=== PATIENT | male | born 1940 | race Caucasian/White ===

== ENCOUNTER 2023-05-29 09:48 | Inpatient (IN) | payer OTHER ==
[~2023-05-29] VITALS: Ht 180.3 cm; Wt 116.0 kg
[2023-05-29] VITALS (14 sets, daily range): BP systolic 94–119; BP diastolic 31–74; PULSE 74–108; RESP 18–24; TEMP 36.7; O2SAT 75–100
[2023-05-29] MEDS ORDERED: SODIUM CHLORIDE 0.9% 1,000 ML IVB ONE (10:30)
[2023-05-29 11:25] LABS: Basophils # (auto) 0 10 ^3/uL (0-0.2); Basophils % (auto) 0.1 % (0.0-2.0); Eosinophils # (auto) 0 10 ^3/uL (0-0.8); Eosinophils % (auto) 0.2 % (0.0-7.0); Hematocrit 38.8 % (41.0-53.0); Hemoglobin 13.1 g/dL (13.5-17.5); Lymphocytes # (auto) 0.7 10 ^3/uL (0.4-5.4); Lymphocytes % (auto) 4.4 % (10.0-50.0); Mean Corpuscular Hemoglobin 32.8 pg (28.0-32.0); Mean Corpuscular Hgb Conc. 33.6 g/dL (32.0-36.0); Mean Corpuscular Volume 97.4 fL (80.0-100.0); Monocytes # (auto) 1.6 10 ^3/uL (0-1.3); Monocytes % (auto) 9.7 % (0.0-12.0); Neutrophils % (auto) 85.6 % (37.0-80.0); Red Blood Cells 3.99 10^6/uL (4.5-5.90); Red Cell Distribution Width 14.6 % (11.8-14.3); White Blood Cell 16.4 10^3/uL (4.4-10.8)
[2023-05-29 11:55] LABS: Alanine Aminotransferase 20 U/L (7-40); Albumin 3.5 g/dL (3.2-4.8); Alkaline Phosphatase 84 U/L (46-116); Anion Gap 12 (5-15); Aspartate Aminotransferase 26 U/L (13-40); BUN/Creatinine Ratio 30.8 (10.0-20.0); Calcium 9.1 mg/dL (8.5-10.1); Carbon Dioxide 24 mmol/L (20-30); Chloride 104 mmol/L (98-107); Glucose 114 mg/dL (74-106); Potassium 3.7 mmol/L (3.5-5.1); Sodium 140 mmol/L (136-145)
[2023-05-29 11:56] LABS: Bilirubin, Total 2.3 mg/dL (0.2-1.0); Total Protein 6.6 g/dL (5.7-8.2)
[2023-05-29 12:22] LABS: Blood Urea Nitrogen 90 mg/dL (9-23)
[2023-05-29] MEDS ORDERED: NOREPINEPHRINE 8 MG/250ML KIT 250 ML IV ONE (12:25)
[2023-05-29 12:35] LABS: Urine Bacteria NONE SEEN /hpf (None Seen); Urine Blood Negative /uL (Negative); Urine Clarity Clear (Clear); Urine Color Yellow (Yellow); Urine Hyaline Cast MANY /lpf (0 - 2); Urine Protein, UAD TRACE (Negative); Urine Specific Gravity 1.016 (1.001-1.035); Urine WBC 3 /hpf (0 - 3)
[2023-05-29 12:43] LABS: INR 1.31 (0.9-1.15); Partial Thromboplastin Time 25.5 SEC (24.5-34.5); Prothrombin Time 13.5 sec (9.3-11.8)
[2023-05-29] MEDS: NOREPINEPHRINE 8 MG/250ML KIT 250 ML IV SCH (13:39)
[2023-05-29] MEDS ORDERED: LIDOCAINE 1% (LOCAL ANESTH.) PF 5ml SDV ID ONE (14:00)
[2023-05-29] MEDS ORDERED: MORPHINE SULFATE INJ 2 MG/ml SYRG IV PRN (15:45)
[2023-05-29] MEDS ORDERED: SODIUM CHLORIDE 0.9% 1,000 ML IV ONE (15:45)
[2023-05-29] MEDS ORDERED: PIPERACILLIN-TAZOB 2.25GM 50 ML IV SCH (15:45)
[2023-05-29] MEDS ORDERED: ONDANSETRON HCL 4 MG/2 ML VIAL IV PRN (15:45)
[2023-05-29] MEDS ORDERED: NITROGLYCERIN 0.4 MG SL TAB SL PRN (15:45)
[2023-05-29] MEDS: PIPERACILLIN-TAZOB 2.25GM 50 ML IV SCH ×2 (16:01→22:07)
[2023-05-29 16:41] LABS: Anion Gap 13 (5-15); Carbon Dioxide 22 mmol/L (20-30); Chloride 104 mmol/L (98-107); Potassium 3.3 mmol/L (3.5-5.1); Sodium 139 mmol/L (136-145)
[2023-05-29 16:43] LABS: Calcium 8.9 mg/dL (8.7-10.4)
[2023-05-29 16:47] LABS: Glucose 199 mg/dL (74-106)
[2023-05-29 16:48] LABS: BUN/Creatinine Ratio 34.5 (10.0-20.0)
[2023-05-29 17:01] LABS: Blood Urea Nitrogen 80 mg/dL (9-23)
[2023-05-29] MEDS ORDERED: SODIUM CHLORIDE 0.9% 500 ML IV ONE (17:15)
[2023-05-29 18:01] LABS: COVID19 ANTIGEN SOFIA FIA NEGATIVE (NEGATIVE)
[2023-05-29] MEDS: SODIUM CHLORIDE 0.9% 1,000 ML IV SCH (18:01)
[2023-05-29] MEDS ORDERED: POTASSIUM EFFERVESENT TAB 25 MEQ PO ONE (18:15)
[2023-05-29 19:10] LABS: Protein, Urine 38.1 mg/dL (0.0-11.9)
[2023-05-29 19:12] LABS: Creatinine, Urine 67.23 mg/dL (30.0-125.0); Urine Protein/Creatinine Ratio 0.57
[2023-05-29] MEDS: SODIUM CHLOR 0.9% PF (SALINE LOCK) 10ML VIAL/SYR IV SCH (22:05)
[2023-05-30] VITALS (45 sets, daily range): BP systolic 83–119; BP diastolic 34–60; PULSE 70–93; RESP 14–29; TEMP 98–98.2; O2SAT 85–100
[2023-05-30] MEDS ORDERED: SODIUM CHLORIDE 0.9% 500 ML IV ONE (01:00)
[2023-05-30] MEDS: SODIUM CHLORIDE 0.9% 1,000 ML IV SCH (03:30)
[2023-05-30] MEDS: PIPERACILLIN-TAZOB 2.25GM 50 ML IV SCH ×2 (04:20→10:09)
[2023-05-30 05:11] LABS: Basophils # (auto) 0 10 ^3/uL (0-0.2); Basophils % (auto) 0.2 % (0.0-2.0); Eosinophils # (auto) 0.1 10 ^3/uL (0-0.8); Eosinophils % (auto) 0.8 % (0.0-7.0); Hematocrit 34.7 % (41.0-53.0); Hemoglobin 11.6 g/dL (13.5-17.5); Lymphocytes % (auto) 7.8 % (10.0-50.0); Mean Corpuscular Hemoglobin 32.3 pg (28.0-32.0); Mean Corpuscular Hgb Conc. 33.4 g/dL (32.0-36.0); Mean Corpuscular Volume 96.9 fL (80.0-100.0); Monocytes # (auto) 1.2 10 ^3/uL (0-1.3); Monocytes % (auto) 9.4 % (0.0-12.0); Neutrophils # (auto) 10.8 10 ^3/uL (1.6-8.6); Neutrophils % (auto) 81.8 % (37.0-80.0); Red Blood Cells 3.58 10^6/uL (4.5-5.90); White Blood Cell 13.2 10^3/uL (4.4-10.8)
[2023-05-30 05:22] LABS: Alanine Aminotransferase 20 U/L (7-40); Alkaline Phosphatase 79 U/L (46-116); Anion Gap 9 (5-15); Aspartate Aminotransferase 19 U/L (13-40); BUN/Creatinine Ratio 43.1 (10.0-20.0); Bilirubin, Total 1.2 mg/dL (0.2-1.0); Blood Urea Nitrogen 78 mg/dL (9-23); Calcium 8.6 mg/dL (8.7-10.4); Carbon Dioxide 26 mmol/L (20-30); Chloride 110 mmol/L (98-107); Glucose 105 mg/dL (74-106); Potassium 3.3 mmol/L (3.5-5.1); Sodium 145 mmol/L (136-145); Total Protein 5.5 g/dL (5.7-8.2)
[2023-05-30] MEDS ORDERED: POTASSIUM EFFERVESENT TAB 25 MEQ GT ONE (10:00)
[2023-05-30] MEDS: SODIUM CHLOR 0.9% PF (SALINE LOCK) 10ML VIAL/SYR IV SCH ×2 (10:10→21:55)
[2023-05-30] MEDS: SOD CHL 0.45% 1,000 ML IV SCH ×2 (10:10→20:09)
[2023-05-30] MEDS: HYDROcodone-ACET 10/325MG TAB PO PRN (11:52)
[2023-05-30] MEDS: NOREPINEPHRINE 8 MG/250ML KIT 250 ML IV SCH (12:30)
[2023-05-30] MEDS: PIPERACILLIN-TAZOB 3.375GM 100 ML IV SCH ×2 (15:54→21:55)
[2023-05-30] MEDS: NYSTATIN TOPICAL POWDER 15GM TOP SCH (21:55)
[2023-05-31] VITALS (9 sets, daily range): BP systolic 92–116; BP diastolic 47–69; PULSE 82–93; RESP 12–20; TEMP 97.8–98.3; O2SAT 92–95
[2023-05-31] MEDS: SOD CHL 0.45% 1,000 ML IV SCH ×3 (02:20→14:15)
[2023-05-31 05:55] LABS: Basophils # (auto) 0 10 ^3/uL (0-0.2); Basophils % (auto) 0.4 % (0.0-2.0); Eosinophils # (auto) 0.2 10 ^3/uL (0-0.8); Eosinophils % (auto) 1.9 % (0.0-7.0); Hemoglobin 12.4 g/dL (13.5-17.5); Lymphocytes # (auto) 1.1 10 ^3/uL (0.4-5.4); Mean Corpuscular Hemoglobin 32.4 pg (28.0-32.0); Mean Corpuscular Hgb Conc. 32.6 g/dL (32.0-36.0); Mean Corpuscular Volume 99.4 fL (80.0-100.0); Monocytes % (auto) 9.1 % (0.0-12.0); Neutrophils # (auto) 8.9 10 ^3/uL (1.6-8.6); Neutrophils % (auto) 78.6 % (37.0-80.0); Nucleated Red Blood Cells % 0.1 %; Red Blood Cells 3.83 10^6/uL (4.5-5.90); Red Cell Distribution Width 15.1 % (11.8-14.3); White Blood Cell 11.4 10^3/uL (4.4-10.8)
[2023-05-31] MEDS: PIPERACILLIN-TAZOB 3.375GM 100 ML IV SCH ×3 (05:55→22:03)
[2023-05-31 06:37] LABS: Alanine Aminotransferase 20 U/L (7-40); Albumin 3.2 g/dL (3.2-4.8); Alkaline Phosphatase 85 U/L (46-116); Anion Gap 7 (5-15); Aspartate Aminotransferase 22 U/L (13-40); BUN/Creatinine Ratio 31.5 (10.0-20.0); Carbon Dioxide 28 mmol/L (20-30); Chloride 108 mmol/L (98-107); Glucose 97 mg/dL (74-106); Potassium 3.5 mmol/L (3.5-5.1); Sodium 143 mmol/L (136-145)
[2023-05-31 06:46] LABS: Blood Urea Nitrogen 40 mg/dL (9-23)
[2023-05-31] MEDS: MAGNESIUM SULFATE 1GM/100ML 100 ML IV SCH ×2 (10:29→11:58)
[2023-05-31] MEDS: NYSTATIN TOPICAL POWDER 15GM TOP SCH ×2 (10:30→22:18)
[2023-05-31] MEDS: SODIUM CHLOR 0.9% PF (SALINE LOCK) 10ML VIAL/SYR IV SCH ×2 (10:37→22:18)
[2023-05-31] MEDS: HYDROcodone-ACET 10/325MG TAB PO PRN (17:18)
[2023-05-31] MEDS: ENOXAPARIN SOD 100 MG/1 ML SYRINGE SC SCH (22:12)
[2023-06-01] VITALS (10 sets, daily range): BP systolic 106–155; BP diastolic 64–74; PULSE 69–101; RESP 16–20; TEMP 97.5–98.2; O2SAT 92–98
[2023-06-01] MEDS: HYDROcodone-ACET 10/325MG TAB PO PRN (01:55)
[2023-06-01] MEDS: SOD CHL 0.45% 1,000 ML IV SCH ×3 (02:01→20:50)
[2023-06-01 06:48] LABS: Basophils # (auto) 0.1 10 ^3/uL (0-0.2); Basophils % (auto) 0.8 % (0.0-2.0); Eosinophils # (auto) 0.3 10 ^3/uL (0-0.8); Eosinophils % (auto) 3.5 % (0.0-7.0); Hematocrit 35.1 % (41.0-53.0); Hemoglobin 11.7 g/dL (13.5-17.5); Lymphocytes % (auto) 11.7 % (10.0-50.0); Mean Corpuscular Hemoglobin 32.3 pg (28.0-32.0); Mean Corpuscular Hgb Conc. 33.3 g/dL (32.0-36.0); Monocytes # (auto) 0.9 10 ^3/uL (0-1.3); Monocytes % (auto) 10.7 % (0.0-12.0); Neutrophils # (auto) 6.2 10 ^3/uL (1.6-8.6); Neutrophils % (auto) 73.3 % (37.0-80.0); Nucleated Red Blood Cells % 0.1 %; Red Blood Cells 3.62 10^6/uL (4.5-5.90); Red Cell Distribution Width 14.5 % (11.8-14.3); White Blood Cell 8.5 10^3/uL (4.4-10.8)
[2023-06-01] MEDS: PIPERACILLIN-TAZOB 3.375GM 100 ML IV SCH ×3 (06:49→20:54)
[2023-06-01] MEDS ORDERED: IOHEXOL 350 MG/ML 100ML IJ ONE (07:09)
[2023-06-01 07:11] LABS: Alanine Aminotransferase 20 U/L (7-40); Albumin 2.9 g/dL (3.2-4.8); Alkaline Phosphatase 89 U/L (46-116); Anion Gap 6 (5-15); Aspartate Aminotransferase 25 U/L (13-40); BUN/Creatinine Ratio 29.7 (10.0-20.0); Calcium 8.6 mg/dL (8.7-10.4); Carbon Dioxide 30 mmol/L (20-30); Chloride 107 mmol/L (98-107); Glucose 87 mg/dL (74-106); Potassium 3.3 mmol/L (3.5-5.1); Sodium 143 mmol/L (136-145); Total Protein 5.5 g/dL (5.7-8.2)
[2023-06-01 07:33] LABS: Blood Urea Nitrogen 30 mg/dL (9-23)
[2023-06-01] MEDS ORDERED: LORazepam 2MG/ML-1ML VIAL IV ONE (09:15)
[2023-06-01] MEDS ORDERED: POTASSIUM CHL 20 Meq TABLET PO ONE (09:15)
[2023-06-01] MEDS: NYSTATIN TOPICAL POWDER 15GM TOP SCH ×2 (10:00→22:00)
[2023-06-01] MEDS: ENOXAPARIN SOD 100 MG/1 ML SYRINGE SC SCH (10:00)
[2023-06-01] MEDS: SODIUM CHLOR 0.9% PF (SALINE LOCK) 10ML VIAL/SYR IV SCH ×2 (10:59→20:58)
[2023-06-02 05:00] VITALS: BP 137/73; PULSE 83; RESP 19; TEMP 98.3; O2SAT 92
[2023-06-02] MEDS: PIPERACILLIN-TAZOB 3.375GM 100 ML IV SCH ×2 (05:10→13:39)
[2023-06-02] MEDS: SOD CHL 0.45% 1,000 ML IV SCH (05:17)
[2023-06-02 06:14] LABS: Basophils # (auto) 0.1 10 ^3/uL (0-0.2); Basophils % (auto) 0.7 % (0.0-2.0); Eosinophils # (auto) 0.3 10 ^3/uL (0-0.8); Eosinophils % (auto) 3.3 % (0.0-7.0); Hematocrit 35.1 % (41.0-53.0); Hemoglobin 11.9 g/dL (13.5-17.5); Lymphocytes # (auto) 1.4 10 ^3/uL (0.4-5.4); Lymphocytes % (auto) 17.3 % (10.0-50.0); Mean Corpuscular Hemoglobin 32.6 pg (28.0-32.0); Mean Corpuscular Hgb Conc. 33.8 g/dL (32.0-36.0); Mean Corpuscular Volume 96.3 fL (80.0-100.0); Monocytes # (auto) 0.9 10 ^3/uL (0-1.3); Monocytes % (auto) 11.1 % (0.0-12.0); Neutrophils # (auto) 5.3 10 ^3/uL (1.6-8.6); Neutrophils % (auto) 67.6 % (37.0-80.0); Red Blood Cells 3.65 10^6/uL (4.5-5.90); Red Cell Distribution Width 14.2 % (11.8-14.3); White Blood Cell 7.8 10^3/uL (4.4-10.8)
[2023-06-02 06:31] LABS: Alanine Aminotransferase 34 U/L (7-40); Alkaline Phosphatase 108 U/L (46-116); Anion Gap 6 (5-15); Aspartate Aminotransferase 40 U/L (13-40); BUN/Creatinine Ratio 20.5 (10.0-20.0); Blood Urea Nitrogen 18 mg/dL (9-23); Calcium 8.8 mg/dL (8.7-10.4); Carbon Dioxide 28 mmol/L (20-30); Chloride 108 mmol/L (98-107); Glucose 88 mg/dL (74-106); Potassium 3.5 mmol/L (3.5-5.1); Sodium 142 mmol/L (136-145)
[2023-06-02 06:32] LABS: Albumin 3.1 g/dL (3.2-4.8); Bilirubin, Total 1.1 mg/dL (0.2-1.0); Total Protein 5.8 g/dL (5.7-8.2)
[2023-06-02 09:00] VITALS: BP 128/65; PULSE 88; RESP 20; TEMP 98.4; O2SAT 94
[2023-06-02] MEDS: NYSTATIN TOPICAL POWDER 15GM TOP SCH (10:00)
[2023-06-02] MEDS: SODIUM CHLOR 0.9% PF (SALINE LOCK) 10ML VIAL/SYR IV SCH (10:00)
[2023-06-02 13:00] VITALS: BP 126/90; PULSE 91; RESP 19; TEMP 97.9; O2SAT 93
== END 2023-06-02 14:40 | disposition home health service (06) | DRG 683 ==
LOC: EDBD 09:48 → ER 09:48 → TELE 15:43 → TELE-EAST 21:05 → DOU IN ICU 21:08 → ICU CENTRL 21:40 → TELE-EAST 05-30 22:57
PROVIDERS: ADMIT Internal Medicine; ATTEND Internal Medicine
PROC: 02HV33Z Insertion of Infusion Device into Superior Vena Cava, Percutaneous Approach (ICD-10-PCS; principal; 2023-05-29)
PROC: B548ZZA Ultrasonography of Superior Vena Cava, Guidance (ICD-10-PCS; 2023-05-29)
DX: N17.9 Acute kidney failure, unspecified (principal); I13.0 Hypertensive heart and chronic kidney disease with heart failure and stage 1 through stage 4 chronic kidney disease, or unspecified chronic kidney disease; I50.22 Chronic systolic (congestive) heart failure; E86.0 Dehydration; N18.2 Chronic kidney disease, stage 2 (mild); E87.6 Hypokalemia; E78.5 Hyperlipidemia, unspecified; D72.829 Elevated white blood cell count, unspecified; I27.20 Pulmonary hypertension, unspecified; I95.9 Hypotension, unspecified; Z20.822 Contact with and (suspected) exposure to COVID-19; E66.9 Obesity, unspecified; R73.9 Hyperglycemia, unspecified; Z88.2 Allergy status to sulfonamides; Z86.73 Personal history of transient ischemic attack (TIA), and cerebral infarction without residual deficits; Z68.35 Body mass index [BMI] 35.0-35.9, adult
CPT/HCPCS: 36415; 36569; 70450; 71045; 76775; 80048; 80053; 81001; 82306; 82570; 83036; 83605; 83880; 83970; 84100; 84156; 84300; 85025; 85610; 85730; 87040; 87081; 87426; 93005; 93306; 93970; 97110; 97116; 97163; G0378; J2543

== ENCOUNTER 2025-08-05 17:36 | Inpatient (IN) | payer OTHER ==
[~2025-08-05] VITALS: Ht 185.4 cm; Wt 109.6 kg
--- NOTE | 2025-08-05 18:48 | DVH ---
EXAM: XY CHEST PORTABLE HISTORY: weakness TECHNIQUE: 1 view of the chest COMPARISON: XY CHEST PORTABLE on DOS: 05/29/23 FINDINGS/IMPRESSION: LUNGS: Large consolidation in the right lung base. Consider further evaluation with CT of the chest with contrast. Increased interstitial markings in the left mid to lower lung zone. MEDIASTINUM: Unremarkable. BONES: No acute osseous abnormality. Degenerative change with rotator cuff insufficiency of bilateral shoulders OTHER: None.
[2025-08-05] MEDS: CEFEPIME 1GM/50ML 50 ML IV ONE (18:49)
--- NOTE | 2025-08-05 18:55 | ED.PDOC ---
History of Present Illness HPI Comments 85 y.o male presents to the ED via EMS for a chief complaint of generalized weakness. Patient is a poor historian. was contacted via telephone who stated she attempted to assist patient up to use the restroom for 45 minutes today but was unsuccessful. states patient has been having urine incontinence with weakness and has had a cognitive deficit. At this time, patient denies any pain. Vital: Temp: 100.6 BP: 104/44 HR: 110 SPO2: 94% RA RR: 22 Past medical history: TIA, HTN, HLD Past surgical history: tonsillectomy and appendectomy MEAD: HPI: Poor Historian. Past Medical History: Past Surgical History: REVIEW OF SYSTEMS: CONSTITUTIONAL: Denies acute: fever, diaphoresis, chills, HEAD: Denies acute: headache, photophobia Eyes: Denies acute: Double vision, vision loss, eye pain, eye discharge. EARS: Denies acute: tinnitus, hearing loss, ear discharge, ear pain, THROAT: Denies acute: sore throat, swelling, difficulty swallowing , pain with swallowing, change in voice. NECK: Denies acute: neck pain, neck swelling, stiff neck. HEART: Denies acute : chest pain, palpitations, LUNGS: Denies acute: SOB, wheezing, cough, hemoptysis ABDOMEN: Denies acute: abdominal pain, Nausea, Vomiting, diarrhea, melena , hematemesis, hematochezia SKIN: Denies acute: rash, redness, lesions, itchiness. EXTREMITIES: Denies acute: calf pain, numbness, tingling, weakness, denies pain in extremity. Denies acute: Low back pain. Neuro: Denies acute: focal neurological deficit, motor or sensory focal neurological deficit, tremors, seizure like activity, cauda equina like symptoms. : Denies acute: dysuria, hematuria, flank pain, increase in urinary frequency. PSYCH: Denies acute: hallucination, suicidal ideation, homicidal ideation. PHYSICAL EXAM: General: -----mild---acute distress, awake and alert. Head: normocephalic, atraumatic. No raccoon's eyes, no curry sign. Neck: supple, trachea is midline, no swelling. Throat: Normal phonation. Eyes:, no erythema, no purulent discharge, no proptosis, no icterus. Heart: regular rate, regular rhythm, no significant murmur appreciated. Lungs: no apparent respiratory distress, Able to speak in full sentences. No wheezing, no rhonchi, no crackles. No stridors Clear to auscultation bilaterally. Abdomen: non tender to palpation, non distended, soft, no guarding, no rebound, + bowel sounds. Neuro: Awake, Alert, oriented to name, self, , Speech is normal. Skin: no petechia, no purpura, no cyanosis, non-pale, not jaundice. Lower extremities: --2/4 b/l- Pitting edema no deformity, no focal swelling, no calf TTP. Makes eye contact. moves all four extremities. Face: no apparent facial droop. ED COURSE: DISCLAIMER: This medical document was created using an electronic medical record system with voice recognition software and computerized dictation system. Although this document has been carefully reviewed, there might still be some phonetic and typographical errors. Occasional wrong-word or "sound-alike" substitutions may have occurred due to the inherent limitations of voice recognition software. These areas are purely typographical due to imperfections of the software programs and do not reflect any compromise in the patient's medical care. Please read the chart carefully and recognize, using context, where these substitutions have occurred. Chief Complaint: General Weakness Time Seen by MD: 18:45 Primary Care Provider: UNK Reviewed Notes: Allergies Allergies: Coded Allergies: Sulfa Antibiotics (Verified Allergy, Unknown, 05/29/23) Home Meds No Active Prescriptions or Reported Meds Information Source: Spouse Mode of Arrival: EMS Severity: Moderate Past Medical History PAST MEDICAL HISTORY: High Lipids, HTN, TIA Surgical History: Appendectomy, Tonsillectomy Family History Family History: Reviewed,noncontributory to illness Social History Smoker: Non-Smoker Alcohol: Denies ETOH Use Drugs: Denies Drug Use Lives In: Home Was a procedure done? Was a procedure done?: No Differential Dx Considerations may include: Dehydration, Electrolyte imbalance X-Ray, Labs, Meds, VS Vital Signs Date Time Temp Pulse Resp B/P (MAP) Pulse Ox O2 Delivery O2 Flow Rate FiO2 08/06/25 06:01 80 18 97 Nasal Cannula* 2 28 08/06/25 06:01 98.1 80 18 142/83 (102) 97 98.1 08/06/25 04:03 86 22 127/63 95 2.0 28 08/06/25 00:22 99.1 86 18 127/63 (84) 95 99.1 08/06/25 00:22 86 17 95 Nasal Cannula* 2 28 08/05/25 19:02 99.0 95 18 108/67 (81) 93 99.0 08/05/25 17:47 100.6 110 22 104/44 94 100.6 08/05/25 17:46 102 Lab Test 08/06/25 04:32 08/05/25 21:36 08/05/25 21:10 08/05/25 19:43 Range/Units Urine Color Dark-yellow Yellow Urine Clarity Clear Clear Urine pH 5.5 5.0-9.0 Urine Specific [place] 1.025 1.001-1.035 Urine Protein 1+ H Negative Urine Ketones Negative Negative Urine Blood 2+ H Negative /uL Urine Nitrite Negative Negative Urine Bilirubin 2+ Negative Urine Urobilinogen 4 H Negative mg/dL Urine Leukocyte Esterase Negative Negative /uL Urine RBC 1 0 - 3 /hpf Urine Microscopic WBC 1 0-3 /HPF Urine Squamous Epithelial Cells None seen <5 /hpf Urine Renal Epithelial Cells Few None Seen /hpf Urine Bacteria Few H None Seen /hpf Urine Mucus Few None Seen Urine Glucose Normal Normal mg/dL Troponin I High Sensitivity 21 17 </=54 ng/L Lactic Acid Level 1.7 0.4-2.0 mmol/L Test 08/05/25 18:43 Range/Units White Blood Count 13.9 H 4.4-10.8 10^3/uL Red Blood Count 4.66 4.5-5.90 10^6/uL Hemoglobin 15.2 13.5-17.5 g/dL Hematocrit 44.8 41.0-53.0 % Mean Corpuscular Volume 96.1 80.0-100.0 fL Mean Corpuscular Hemoglobin 32.5 H 28.0-32.0 pg Mean Corpuscular Hemoglobin Concent 33.8 32.0-36.0 g/dL Red Cell Distribution Width 14.1 11.8-14.3 % Platelet Count 155 140-450 10^3/uL Mean Platelet Volume 8.2 6.9-10.8 fL Neutrophils (%) (Auto) 91.6 H 37.0-80.0 % Lymphocytes (%) (Auto) 2.5 L 10.0-50.0 % Monocytes (%) (Auto) 5.8 0.0-12.0 % Eosinophils (%) (Auto) 0.0 0.0-7.0 % Basophils (%) (Auto) 0.1 0.0-2.0 % Neutrophils # (Auto) 12.7 H 1.6-8.6 10 ^3/uL Lymphocytes # (Auto) 0.3 L 0.4-5.4 10 ^3/uL Monocytes # (Auto) 0.8 0-1.3 10 ^3/uL Eosinophils # (Auto) 0 0-0.8 10 ^3/uL Basophils # (Auto) 0 0-0.2 10 ^3/uL Nucleated Red Blood Cells 0.1 % Prothrombin Time 15.6 H 9.3-11.8 sec Prothrombin Time INR 1.54 H 0.9-1.15 Activated Partial Thromboplast Time 30.7 24.5-34.5 SEC Sodium Level 143 136-145 mmol/L Potassium Level 3.5 3.5-5.1 mmol/L Chloride Level 102 98-107 mmol/L Carbon Dioxide Level 29 20-31 mmol/L Anion Gap 12 5-15 Blood Urea Nitrogen 20 9-23 mg/dL Creatinine 1.04 0.700-1.30 mg/dL Glomerular Filtration Rate Calc 71 >90 mL/min BUN/Creatinine Ratio 19.2 10.0-20.0 Serum Glucose 123 H 74-106 mg/dL Lactic Acid Level 2.3 *H 0.4-2.0 mmol/L Calcium Level 9.3 8.7-10.4 mg/dL Magnesium Level 1.8 1.6-2.6 mg/dL Total Bilirubin 5.6 H 0.2-1.0 mg/dL Aspartate Amino Transferase (AST) 111 H 13-40 U/L Alanine Aminotransferase (ALT) 95 H 7-40 U/L Alkaline Phosphatase 209 H 46-116 U/L Troponin I High Sensitivity 15 </=54 ng/L Total Protein 6.5 5.7-8.2 g/dL Albumin 3.8 3.2-4.8 g/dL Microbiology Date/Time Source Procedure Growth Status 08/05/25 18:43 Blood Blood Culture - Preliminary Resulted Current Medications Medications (Trade) Dose Ordered Sig/Rosalind Route Start Time Stop Time Status Last Admin Lactated Ringer's 2,400 ml @ 2,400 mls/hr ONCE ONCE IV 08/05/25 18:15 08/05/25 19:14 DC 08/05/25 19:05 Cefepime HCl 50 ml @ 12.5 mls/hr Q8HR@0400,1200,2000 IV 08/06/25 04:00 08/06/25 07:01 DC 08/06/25 04:00 Cefepime HCl 50 ml @ 12.5 mls/hr ONCE ONCE IV 08/05/25 18:15 08/05/25 22:14 DC 08/05/25 19:05 Sodium Chloride 1,000 ml @ 100 mls/hr Q10H IV 08/06/25 03:45 08/06/25 03:45 Morphine Sulfate 2 mg Q4HPRN PRN IV 08/06/25 03:45 08/06/25 15:17 Time of 1ST Reevaluation: 18:44 Reevaluation 1ST: Unchanged Time of 2ND Reevaluation: 03:06 (The case was discussed with the admitting team (HPI, physical exam, labs and diagnostic tests that were available at the time of disposition, ED course, treatment plan) on the phone. They agreed to admit the patient to their service and assume care of this patient from this point forward. --- Sheela. He requested CT of the chest and a straight cath for UA. He said he will come and evaluate the patient.) Patient Education/Counseling: Other Family Education/Counseling: Diagnosis, Treatment Comments MDM: patient presented with the above HPI.--generalized weakness---workup was initiated. patient was found with the above mentioned diagnosis. the following medications were ordered: please refer to order lists of meds and tests obtained by myself Dr. Shelley. Patient ED course and VS have been stabilized. Patient has been reassessed in the ED and remained in a stable condition. Pertinent incidental findings were discussed with the patient and/or family. Patient/family voices understanding and is agreeable with plan. Patient has been observed in the ED adequate length of time to insure improvement/stability. Escalation of care considered: Consideration of escalation to observation or admission Sepsis protocol was initiated. Patient was ADMITTED to the medicine team for further evaluation and treatment of their presentation. However there has been a delay of this patient's care because the hospitalist admitted the patient then removed the admission order the waiting some additional orders. Repeat CMP shows improvement of transaminitis. CT scan of the abdomen and pelvis and gallbladder ultrasound were both unremarkable. All the reports of any imaging studies that were ordered by myself were reviewed by myself. Departure 1 Departure Time of Disposition: 18:46 Impression: Primary Impression: Sepsis Additional Impressions: Hyperbilirubinemia Elevated LFTs UTI (urinary tract infection) Generalized weakness Disposition: ADMITTED INPATIENT Admit to: Tele Condition: Guarded e-Prescriptions No Active Prescriptions or Reported Meds Discharged With: Spouse Critical Care Note Critical Care Time?: Yes (1 hr-critical care time only) Critical care comment: Due to a high probability of clinically significant, life threatening deterioration, the patient required my highest level of preparedness to intervene emergently and I personally spent this critical care time directly and personally managing the patient. This critical care time included obtaining a history; examining the patient; pulse oximetry; ordering and review of studies; arranging urgent treatment with development of a management plan; evaluation of patient's response to treatment; frequent reassessment; and, discussions with other providers. This critical care time was performed to assess and manage the high probability of imminent, life-threatening deterioration that could result in multi-organ failure. It was exclusive of separately billable procedures and treating other patients and teaching time. Please see my other sections and the rest of the note for further information on patient assessment and treatment. I personally scribed for REYES SHELLEY DO ([email or web address]) on 08/05/25 at 18:55. Electronically submitted by Franny Hernandez ([facility]). REYES SHELLEY DO Aug 05, 2025 18:55
[2025-08-05] MEDS: LACTATED RINGER'S 2,400 ML IV ONE (19:05)
[2025-08-05 19:17] LABS: Hematocrit 44.8 % (41.0-53.0); Hemoglobin 15.2 g/dL (13.5-17.5); Mean Corpuscular Hemoglobin 32.5 pg (28.0-32.0); Mean Corpuscular Volume 96.1 fL (80.0-100.0); Nucleated Red Blood Cells % 0.1 %
[2025-08-05 19:32] LABS: Albumin 3.8 g/dL (3.2-4.8); Anion Gap 12 (5-15); BUN/Creatinine Ratio 19.2 (10.0-20.0); Blood Urea Nitrogen 20 mg/dL (9-23); Calcium 9.3 mg/dL (8.7-10.4); Carbon Dioxide 29 mmol/L (20-31); Chloride 102 mmol/L (98-107); Magnesium 1.8 mg/dL (1.6-2.6); Sodium 143 mmol/L (136-145); Total Protein 6.5 g/dL (5.7-8.2)
[2025-08-05 19:33] LABS: INR 1.54 (0.9-1.15); Partial Thromboplastin Time 30.7 SEC (24.5-34.5); Prothrombin Time 15.6 sec (9.3-11.8)
[2025-08-05 19:39] LABS: Alanine Aminotransferase 95 U/L (7-40); Alkaline Phosphatase 209 U/L (46-116); Bilirubin, Total 5.6 mg/dL (0.2-1.0); Glucose 123 mg/dL (74-106); Potassium 3.5 mmol/L (3.5-5.1)
[2025-08-05 19:47] LABS: Lactic Acid w/Reflex 2.3 mmol/L (0.4-2.0)
[2025-08-06] VITALS (10 sets, daily range): BP systolic 127–152; BP diastolic 63–82; PULSE 71–87; RESP 16–22; TEMP 98.6–99.1; O2SAT 95–99
[2025-08-06] MEDS: SODIUM CHLORIDE 0.9% 1,000 ML IV SCH (03:45)
[2025-08-06] MEDS ORDERED: NITROGLYCERIN 0.4 MG SL TAB SL PRN (03:45)
[2025-08-06] MEDS ORDERED: ACETAMINOPHEN 325 MG TAB PO PRN (03:45)
[2025-08-06] MEDS ORDERED: ONDANSETRON HCL 4 MG/2 ML VIAL IV PRN (03:45)
[2025-08-06] MEDS ORDERED: DOCUSATE SOD 100 MG CAP PO PRN (03:45)
--- NOTE | 2025-08-06 03:58 | DVH ---
Exam: CT CHEST WITHOUT CONTRAST History: lung consolidation Comparison Study: Prior studies dating back to 05/29/2023 TECHNIQUE: Multidetector CT of the chest was performed from lung bases to pubic symphysis. Imaging was performed without IV contrast. Axial, coronal and sagittal multiplanar reformats were obtained from the axial data set by the technologist. Radiation optimization: All CT scans at this facility use at least one of these dose optimization techniques: automated exposure control mA and/or kV adjustment per patient size (includes targeted exams where dose is matched to clinical indication) or iterative reconstruction. Radiation Dose Information: CT Dose: CTDI volume is 29.35 mGy. Dose-length product is 1192.09 mGy*cm FINDINGS: Previously described consolidation by x-ray right lower lobe relates to known right anterior diaphragmatic hernia which is large and contains multiple loops of small and large bowel. There is a small right pleural effusion. No additional consolidation. Mild centrilobular emphysema. The airway is patent. There is mild amount of debris in the upper esophagus. There are coronary artery calcifications. There is cholelithiasis. Severe degenerative changes of the lower thoracic and upper lumbar spine due to osseous fusion. IMPRESSION: 1. Previously described consolidation by x-ray corresponds to large bowel containing anterior right diaphragmatic hernia, similar to prior examinations. 2. Small right pleural effusion. 3. Mild centrilobular emphysema.
[2025-08-06] MEDS: CEFEPIME 1GM/50ML 50 ML IV SCH (04:00)
[2025-08-06 05:16] LABS: Urine Protein, UAD 1+ (Negative)
--- NOTE | 2025-08-06 05:58 | DVH ---
Exam: CT CT AB PEL WO CON-NO ORAL OR IV History: hyperbili Comparison Study: None Technique: Multidetector spiral CT of the abdomen was performed from lung bases to pubic symphysis. Imaging was performed without IV contrast. Axial, coronal and sagittal multiplanar reformats were obtained from the axial data set by the technologist. Radiation Dose : 1. Abdomen/Pelvis: CTDIvol 27 mGy, DLP 1496 mGy*cm. Findings: Evaluation of solid organs is limited due to lack of intravenous contrast use. Lung Bases: Small right pleural effusion. Right basilar subsegmental atelectasis. Cardiomegaly. No acute or significant lung base finding. Liver: The liver is normal in size. No focal lesions. Gallbladder and Biliary Tree: Cholelithiasis. Spleen: Unremarkable Pancreas: The pancreas is grossly normal in appearance. Adrenal Glands: Unremarkable Kidneys: Kidneys are grossly normal without calculi or hydronephrosis. Bladder: Grossly unremarkable for degree of distention. Bowel: Right anterior diaphragmatic hernia containing large portion of mesentery and small and large bowel in the right anterior hemithorax, unchanged. The stomach is grossly normal in appearance. The small bowel is normal in caliber and distribution. The colon is normal in caliber and distribution. The appendix is not visualized; however, no secondary findings of acute appendicitis identified. Ascites: Absent Lymphadenopathy: No mesenteric, retroperitoneal or periportal lymphadenopathy. Abdominal Wall and Mesentery: Unremarkable. Vasculature: Coronary artery calcifications. Vascular calcifications of the aorta. The visualized abdominal aorta is normal in size and caliber. Evaluation of abdominal and pelvic vessels is limited due to lack of intravenous contrast. Pelvic Organs: Unremarkable Musculoskeletal: Diffuse osteopenia. Advanced multilevel degenerative changes of the lumbar spine. Lucent appearing bony destructive changes present at T12 to L3, unchanged. No aggressive focal bony lesions, acute fractures or dislocation. IMPRESSION: No acute abdominal or pelvic findings. Cholelithiasis. 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 Small right pleural effusion. Lucent appearing osseous fusion changes present at T12 to L3, unchanged. Radiation optimization: All CT scans at this facility use at least one of these dose optimization techniques: automated exposure control mA and/or kV adjustment per patient size (includes targeted exams where dose is matched to clinical indication) or iterative reconstruction.
--- NOTE | 2025-08-06 06:56 | DVH ---
INDICATION: transaminitis TECHNIQUE: Multiple real-time sonographic images were obtained of the right upper quadrant. COMPARISON: US KIDNEY on DOS: 05/29/23 FINDINGS: The liver demonstrates homogeneous echotexture without focal mass lesions. The liver measures 17 cm. There is no intrahepatic or extrahepatic ductal dilatation. The common duct measures 0.6 cm. Cholelithiasis. The gallbladder wall measures 0.3 cm and is within normal limits. The right kidney measures 10.2 cm. The right kidney is normal in contour, size, and shape. The echogenicity is increased. There is no hydronephrosis. Right lower pole cyst measures 1.5 cm. The pancreas is not well visualized due to overlying bowel gas. IMPRESSION: Cholelithiasis. Right renal cyst. Increased echogenicity of the right kidney is nonspecific but can be seen in chronic medical renal disease.
[2025-08-06 06:57] LABS: Hematocrit 39.3 % (41.0-53.0); Hemoglobin 13.6 g/dL (13.5-17.5); Mean Corpuscular Hemoglobin 33.2 pg (28.0-32.0); Mean Corpuscular Volume 96.3 fL (80.0-100.0); Nucleated Red Blood Cells % 0.0 %
[2025-08-06 07:17] LABS: Alanine Aminotransferase 69 U/L (7-40); Albumin 3.4 g/dL (3.2-4.8); Alkaline Phosphatase 160 U/L (46-116); Anion Gap 11 (5-15); BUN/Creatinine Ratio 21.0 (10.0-20.0); Bilirubin, Total 5.6 mg/dL (0.2-1.0); Blood Urea Nitrogen 17 mg/dL (9-23); Calcium 8.5 mg/dL (8.7-10.4); Carbon Dioxide 27 mmol/L (20-31); Chloride 106 mmol/L (98-107); Glucose 90 mg/dL (74-106); Potassium 3.7 mmol/L (3.5-5.1); Sodium 144 mmol/L (136-145); Total Protein 6.0 g/dL (5.7-8.2)
--- NOTE | 2025-08-06 07:44 | DVHHP ---
ADMIT DATE: 08/06/2025 CHIEF COMPLAINT: Was brought in due to confusion and incontinence of urine. HISTORY OF PRESENT ILLNESS: This is an 85-year-old male with significant past medical history for benign prostate hypertrophy who presents with a chief complaint by EMS for altered mental status and urinary incontinence. His history is gathered from the ER physician; however, the patient currently is alert and oriented to self, time, and to place. The patient says that he came in due to weakness in his bilateral lower extremities. He says it has been ongoing for about 1-2 weeks. He has not had any fevers, chills, or any cough or phlegm or any abdominal pain or any chest pain or shortness of breath, bloody or tarry stools, urinary frequency, urgency or burning sensation, dizziness, headaches, joint pain, fatigue, or earaches. PAST MEDICAL HISTORY: Benign prostate hypertrophy. PAST SURGICAL HISTORY: No significant surgical history. SOCIAL HISTORY: He says he quit tobacco about 30 years ago. No alcohol and no illicit drugs. MEDICATIONS AT HOME: Flomax 0.4 mg once at nighttime. MEDICATION ALLERGIES: ALLERGY TO SULFA. REVIEW OF SYSTEMS: A 10-point review of systems was covered with the patient and was negative with exception to what was present in history of present illness. PHYSICAL EXAMINATION: VITAL SIGNS: Temperature max of 100.6, temperature current 98.1; pulse rate of 110; respiratory rate 22; blood pressure 104/44; pulse ox about 94% on room air. GENERAL: Alert and oriented x3. Nonacute distress male sitting up in a wheelchair. HEENT: Normocephalic and atraumatic. Extraocular muscles were intact. Pupils are equally round and reactive to light and accommodations. Mucous membranes were dry. CARDIOVASCULAR: S1, S2 positive. Regular rate and rhythm. No rubs, gallops or murmurs. LUNGS: Seemed to be with slightly diminished breath sounds bilaterally. No wheezing, rhonchi, or rales. ABDOMEN: Seems to be soft, nontender, and nondistended. Positive bowel sounds. No guarding or rebound. EXTREMITIES: Lower extremities, the patient does have dry, scaly skin of bilateral lower extremities. There is a slight left anterior midline ankle region scraping of the skin; however, no cellulitic warmth or tenderness is elicited on palpation. NEUROLOGIC: Cranial nerves 2-12 overall seem to be intact. No focal deficits. LABORATORY WORKUP: Showed a white count of 13.9, H and H of 15.2 and 44.8, platelet count of 155,000, neutrophils shift of 91.6%. Sodium of 143, potassium of 3.5, chloride of 102, carbon dioxide of 29, anion gap of 12, BUN of 20, creatinine of 1.04, serum glucose of 123. Lactic acid of 2.3, repeat of 1.7. Calcium at 9.3, magnesium of 1.8, AST of 111, ALT of 95, total bilirubin of 5.6, alkaline phosphatase of 209. Troponins of 15, 17, and 21. INR of 4.54. Urinalysis shows 2+ bilirubin. Leukocyte esterase were negative. Nitrites were negative, 1 wbc. IMAGING: Chest x-ray, consolidation of the right lung base. Consider further evaluation with CT of the chest with contrast and increased interstitial markings of the left mid to lower lung zones. Mediastinum is unremarkable. CT chest without contrast shows previously described consolidation by x-ray corresponds to large bowel-containing anterior right diaphragmatic hernia similar to prior examination. Small right pleural effusion, mild centrilobular emphysema. CT abdomen and pelvis, impression: No acute abdominal or pelvic findings, cholelithiasis, right anterior diaphragmatic hernia containing a large portion of mesentery and small and large bowel in the right anterior hemothorax, unchanged. Small right pleural effusion. Lucent-appearing osseous fusion changes present at T12 to L3, unchanged. EKG showed sinus tachycardia, ventricular rate of 102 with nonspecific T-wave changes. DIAGNOSES: * Systemic inflammatory response syndrome. * Transaminitis. * Hyperbilirubinemia. * Mild renal insufficiency. SECONDARY DIAGNOSIS: Benign prostate hypertrophy. PLAN: The patient will be admitted to the Medical Telemetry under observation status. The patient has a consultation with Gastroenterology. The patient will be ordered IV antibiotics with cefepime 2 g IV q.8. The patient has received IV fluid boluses for sepsis in ED, will be continued on normal saline, 100 mL now maintenance fluids. CBC, CMP, direct bilirubin, hepatitis panel, and LDH has also been ordered. Patient chest imaging did not show any source of infection. Patient urine analysis was negative for UTI. Blood cultures have been sent out. The patient will be ordered Zofran 4 mg IV p.r.n. for nausea and vomiting. The patient to have Lovenox 40 mg subcutaneously for DVT prophylaxis. The patient is a full code. Further recommendations will depend on patient's hospital progression. George Cordon MD LM/ANDREA TID: [id number] RECEIPT: [id number] MTDD
[2025-08-06] MEDS: PIPERACILLIN-TAZOB 3.375GM 100 ML IV ONE (08:57)
[2025-08-06] MEDS: ENOXAPARIN SOD 40 MG/0.4 ML SYRINGE SC SCH (08:58)
[2025-08-06] MEDS ORDERED: AZITHROMYCIN 500MG/250ML 250 ML IV SCH (10:00)
[2025-08-06] MEDS ORDERED: CEFEPIME 2GM/50ML NS 50 ML IV SCH (12:00)
[2025-08-06] MEDS ORDERED: PIPERACILLIN-TAZOB 3.375GM 100 ML IV SCH ×2 (14:00)
--- NOTE | 2025-08-06 14:54 | DVHINCON2 ---
Date of service: Aug 06, [address] Cheney Reason for Consultation Elevated liver enzymes History of Present Illness 85 y.o male presents to the ED via EMS for a chief complaint of generalized weakness was contacted via telephone who stated she attempted to assist patient up to use the restroom for 45 minutes today but was unsuccessful. states patient has been having urine incontinence with weakness and has had a cognitive deficit. At this time, patient denies any pain. Patient was found to have elevated liver enzymes and GI was consulted for the same. He denied any recent antibiotic use. Patient has no known history of chronic liver disease an d denies drinking alcohol. He had lactic acidosis with suspected sepsis of unclear etiology. GI imaging showed cholelithiasis Past Medical History CHF, hyperlipidemia, hypertension, BPH, TIA Allergies: Coded Allergies: Sulfa Antibiotics (Verified Allergy, Unknown, 05/29/23) Home Meds No Active Prescriptions or Reported Meds Current Medications Current Medications Medications (Trade) Dose Ordered Sig/Rosalind Route PRN Reason Start Time Stop Time Status Last Admin Cefepime HCl 50 ml @ 12.5 mls/hr Q8HR@0400,1200,2000 IV 08/06/25 04:00 08/06/25 07:01 DC 08/06/25 04:00 Sodium Chloride 1,000 ml @ 100 mls/hr Q10H IV 08/06/25 03:45 08/06/25 03:45 Ondansetron HCl (Zofran) 4 mg Q4HP PRN IV NAUSEA / VOMITING 08/06/25 03:45 Docusate Sodium (Colace Capsule) 100 mg BIDPRN PRN PO FOR CONSTIPATION 08/06/25 03:45 Acetaminophen (Tylenol Tablet) 650 mg Q6HP PRN PO PAIN SCALE 1-3 OR TEMP>100.4 08/06/25 03:45 Morphine Sulfate 2 mg Q4HPRN PRN IV SEVERE PAIN (7-10 PAIN SCALE) 08/06/25 03:45 Enoxaparin Sodium (Lovenox) 40 mg DAILY SC 08/06/25 08:00 08/06/25 08:58 Nitroglycerin (Ntrostat Sublingual) 0.4 mg Q5MINP PRN SL FOR CHEST PAIN 08/06/25 03:45 Azithromycin 250 ml @ 125 mls/hr DAILY IV 08/06/25 10:00 08/06/25 06:14 DC Cefepime HCl 50 ml @ 12.5 mls/hr Q8H IV 08/06/25 12:00 08/06/25 08:29 DC Albuterol (Ventolin Medneb) 2.5 mg Q4HPRN PRN NEB SHORTNESS OF BREATH 08/06/25 03:45 Tamsulosin HCl (Flomax) 0.4 mg QPM PO 08/06/25 18:00 Piperacillin Sod/ Tazobactam Sod 100 ml @ 25 mls/hr Q8HR IV 08/06/25 14:00 08/06/25 08:24 DC Piperacillin Sod/ Tazobactam Sod 100 ml @ 25 mls/hr Q8HR IV 08/06/25 14:00 Vital Signs Vital Signs Date Time Temp Pulse Resp B/P (MAP) Pulse Ox O2 Delivery O2 Flow Rate FiO2 08/06/25 12:00 82 08/06/25 09:26 99 Nasal Cannula* 3 32 08/06/25 07:51 97.6 16 130/62 (84) 97.6 Physical Exam Patient had low-grade fever of 100.6, currently afebrile Pupils equal and react to light, extraocular movements intact Lungs clear, CVS S1-S2 regular rate rhythm Abdomen is soft nontender nondistended Extremities no clubbing cyanosis or edema Neuro alert oriented x3 with no focal deficit Labs/Diagnostic Data Labs Test 08/06/25 08:55 08/06/25 06:37 08/06/25 04:32 08/05/25 21:36 Range/Units White Blood Count 11.1 H 4.4-10.8 10^3/uL Red Blood Count 4.08 L 4.5-5.90 10^6/uL Hemoglobin 13.6 13.5-17.5 g/dL Hematocrit 39.3 #L 41.0-53.0 % Mean Corpuscular Volume 96.3 80.0-100.0 fL Mean Corpuscular Hemoglobin 33.2 H 28.0-32.0 pg Mean Corpuscular Hemoglobin Concent 34.5 32.0-36.0 g/dL Red Cell Distribution Width 14.0 11.8-14.3 % Platelet Count 129 L 140-450 10^3/uL Mean Platelet Volume 8.3 6.9-10.8 fL Neutrophils (%) (Auto) 86.9 H 37.0-80.0 % Lymphocytes (%) (Auto) 5.6 L 10.0-50.0 % Monocytes (%) (Auto) 7.2 0.0-12.0 % Eosinophils (%) (Auto) 0.1 0.0-7.0 % Basophils (%) (Auto) 0.2 0.0-2.0 % Neutrophils # (Auto) 9.6 H 1.6-8.6 10 ^3/uL Lymphocytes # (Auto) 0.6 0.4-5.4 10 ^3/uL Monocytes # (Auto) 0.8 0-1.3 10 ^3/uL Eosinophils # (Auto) 0 0-0.8 10 ^3/uL Basophils # (Auto) 0 0-0.2 10 ^3/uL Nucleated Red Blood Cells 0.0 % Sodium Level 144 136-145 mmol/L Potassium Level 3.7 3.5-5.1 mmol/L Chloride Level 106 98-107 mmol/L Carbon Dioxide Level 27 20-31 mmol/L Anion Gap 11 5-15 Blood Urea Nitrogen 17 9-23 mg/dL Creatinine 0.81 0.700-1.30 mg/dL Glomerular Filtration Rate Calc 87 >90 mL/min BUN/Creatinine Ratio 21.0 H 10.0-20.0 Serum Glucose 90 74-106 mg/dL Calcium Level 8.5 L 8.7-10.4 mg/dL Total Bilirubin 5.6 H 0.2-1.0 mg/dL Direct Bilirubin 3.6 H <0.3 mg/dL Aspartate Amino Transferase (AST) 73 H 13-40 U/L Alanine Aminotransferase (ALT) 69 H 7-40 U/L Alkaline Phosphatase 160 H 46-116 U/L Lactate Dehydrogenase 301 H 120-246 U/L Total Protein 6.0 5.7-8.2 g/dL Albumin 3.4 3.2-4.8 g/dL Urine Color Dark-yellow Yellow Urine Clarity Clear Clear Urine pH 5.5 5.0-9.0 Urine Specific [place] 1.025 1.001-1.035 Urine Protein 1+ H Negative Urine Ketones Negative Negative Urine Blood 2+ H Negative /uL Urine Nitrite Negative Negative Urine Bilirubin 2+ Negative Urine Urobilinogen 4 H Negative mg/dL Urine Leukocyte Esterase Negative Negative /uL Urine RBC 1 0 - 3 /hpf Urine Microscopic WBC 1 0-3 /HPF Urine Squamous Epithelial Cells None seen <5 /hpf Urine Renal Epithelial Cells Few None Seen /hpf Urine Bacteria Few H None Seen /hpf Urine Mucus Few None Seen Urine Glucose Normal Normal mg/dL Troponin I High Sensitivity 21 </=54 ng/L Test 08/05/25 21:10 08/05/25 18:43 Range/Units Lactic Acid Level 1.7 0.4-2.0 mmol/L Prothrombin Time 15.6 H 9.3-11.8 sec Prothrombin Time INR 1.54 H 0.9-1.15 Activated Partial Thromboplast Time 30.7 24.5-34.5 SEC Magnesium Level 1.8 1.6-2.6 mg/dL Microbiology Date/Time Source Procedure Growth Status 08/05/25 18:43 Blood Blood Culture - Preliminary Resulted CT SCAN ABD PELVIS IMPRESSION: No acute abdominal or pelvic findings. Cholelithiasis. 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 Small right pleural effusion. Lucent appearing osseous fusion changes present at T12 to L3, unchanged. RUQ USG IMPRESSION: Cholelithiasis. Right renal cyst. Increased echogenicity of the right kidney is nonspecific but can be seen in chronic medical renal disease. Problems(with codes): (1) Elevated LFTs (2) Sepsis (3) Hyperbilirubinemia (4) UTI (urinary tract infection) (5) Generalized weakness (6) Hypotension (7) Dehydration Plan/Recommendation Plan IV fluid hydration IV antibiotics Monitor serial labs; IV PPI Start clear liquid diet advance as tolerated Hepatitis panel acute and chronic Differential diagnosis includes systemic inflammatory response causing elevated liver enzymes versus viral hepatitis with sepsis no Cholelithiasis rule out choledocholithiasis Possible UTI but UA initial UA was negative Finding on chest x-ray is likely related to herniation of abdominal contents through a diaphragmatic hernia Plan discussed with: Patient, Other (ER Nurse) PAZ GOFF MD Aug 06, 2025 14:54
[2025-08-06] MEDS: MORPHINE SULFATE INJ 2 MG/ml SYRG IV PRN (15:17)
[2025-08-06] MEDS: PIPERACILLIN-TAZOB 3.375GM 100 ML IV SCH ×2 (16:08→23:12)
--- NOTE | 2025-08-06 16:27 | DVH ---
MRI MRCP MRI HISTORY: hyperbilirubenemia COMPARISON: None PROCEDURE: Multiplanar multisequence MRI images were obtained of the abdomen without intravenous contrast Additional MIPS were obtained of the biliary system. FINDINGS: Bile ducts: -Intrahepatic ducts: Non-dilated. -Extrahepatic ducts: Non-dilated. -Common bile duct: 1.2 cm -Filling defects: 1 filling defects -Stricture: None. Gallbladder: Multiple gallstones. Pancreas: Pancreatic duct: No ductal dilatation. Lesions: None. Liver: Signal intensity: Homogenous. Contour: Smooth. Size: Normal. Lesions: No focal liver lesion. ADDITIONAL FINDINGS: Lung base: Large right hemidiaphragm hernia contains bowel. Pancreas: Subcentimeter cysts. Spleen:Normal. Bowel: Normal. Adrenal glands:Normal. Kidneys and ureters: Bilateral kidney cysts. Lymph nodes:Normal. Peritoneum:Normal. Vessels: Normal. Abdominal wall: Normal. Bone: Severe degnerative changes of the lumbar spine. Lower thoracic vertebral body T2 hyperintense lesion most likely an osseous hemangioma. IMPRESSION: Cholelithiasis with choledocholithiasis. Large right hemidiaphragm hernia contains bowel.
--- NOTE | 2025-08-06 18:05 | DVHDS2 ---
New Physician D'charge PN Admitting Diagnosis Admitting Diagnosis weakness, abd pain Discharge Diagnosis biliary stone, needs ERCP Operations or Procedures none Reason(s) For Hospitalization Surgery Hospital Course 85 M coming to ER for abdominal pain and weakness. He was noted to have a WBC of 13k and fever. HIs chem panel revealed LFTs in the 100s and a bilirubin of 5.6. He was admitted and Ct abdomen showed gallstones but no other acute findings. His US abdomen showed gall stones as well. He was started on IV zosyn and blood cultures showed gram negative rods. GI was consulted and MRCP was ordered which showed choledocholithiasis. Given the biliary stone and no ERCP available here at this hospital, GI recommends transfer to [facility] for ERCP in the setting of choledocholithiasis. [facility] to arrange for [facility] bed and transport. Patient to DC to [facility] once bed available anf arrangements made. Treatment Plan Discharge Condition of Discharge Fair Disposition Acute Care Facility Discharge Instructions Diet: See Comment Diet comment: clear liquid Activity: Bed rest Medications: see med sheet Follow Up Care Follow Up/Referral: pcp GI Discharge Statement: "Patient was advised to return to the ER or call 911 if any headaches, dizziness, shortness of breath, chest pain, abdominal pain, bleeding, fevers, or worsening of medical condition. Patient was counseled about treatment plan, medications, possible side effects, patientverbalized understanding. All questions were answered to the best of my ability. This discharge took greater then 30 minutes in planning, reviewing documentation, counseling the patient, and discussing with other team members." JULIO LAGUERRE MD Aug 06, 2025 18:05
[2025-08-06] MEDS ORDERED: TAMS-35 PO (18:37)
[2025-08-06] MEDS: TAMSULOSIN HYDROCHLORIDE 0.4 MG CAP PO SCH (19:20)
[2025-08-07] VITALS (9 sets, daily range): BP systolic 101–185; BP diastolic 50–89; PULSE 71–93; RESP 14–18; TEMP 97.1–98.4; O2SAT 92–98
[2025-08-07 06:33] LABS: Anion Gap 9 (5-15); BUN/Creatinine Ratio 21.1 (10.0-20.0); Blood Urea Nitrogen 16 mg/dL (9-23); Carbon Dioxide 28 mmol/L (20-31); Chloride 107 mmol/L (98-107); Glucose 77 mg/dL (74-106); Potassium 3.7 mmol/L (3.5-5.1); Sodium 144 mmol/L (136-145)
[2025-08-07 06:41] LABS: Alanine Aminotransferase 45 U/L (7-40); Albumin 2.9 g/dL (3.2-4.8); Alkaline Phosphatase 137 U/L (46-116); Bilirubin, Total 4.1 mg/dL (0.2-1.0); Calcium 8.3 mg/dL (8.7-10.4); Total Protein 5.4 g/dL (5.7-8.2)
[2025-08-07 10:17] LABS: Hepatitis B Surface Antigen Negative (Negative)
[2025-08-07 10:43] LABS: Hepatitis C Antibody Negative (Negative)
--- NOTE | 2025-08-07 10:56 | ECG ---
[facility] Test Date: 2025-08-05 Test Time: 17:46:03 Pat Name: REGLA GALE Department: [facility] ED Patient ID: [facility]-[id number] Room: [facility] A Gender: M Cash Controller: moira : 1940 Requested By: REYES ARCE Order Number: [id number] Reading MD: Leonel Fofana Measurements Intervals [place] Rate: 102 P: 78 ME: 175 QRS: 6 QRSD: 100 T: 58 QT: 340 QTc: 443 Interpretive Statements Sinus tachycardia Low voltage, precordial leads Electronically Signed On 08-09-2025 17:42:06 PST by Leonel Fofana Please click the below link to view image of tracing.
[2025-08-07 11:00] LABS: Hematocrit 41.7 % (41.0-53.0); Hemoglobin 13.7 g/dL (13.5-17.5); Mean Corpuscular Hemoglobin 32.2 pg (28.0-32.0); Mean Corpuscular Volume 97.8 fL (80.0-100.0); Nucleated Red Blood Cells % 0.0 %
[2025-08-07] MEDS ORDERED: SODIUM CHLOR 0.9% PF (SALINE LOCK) 10ML VIAL/SYR IV ONE ×2 (14:15)
--- NOTE | 2025-08-07 14:39 | DVHPN2 ---
Progress Note - Dictate Date Seen: Aug 07, 2025 Medical Necessity Reason Pt with a Central, PICC or Fol: No Subjective No new complaints Patient is resting comfortably MRCP showed a CBD stone Today his liver enzymes are trending down vital signs Vital Sign Date Time Temp Pulse Resp B/P (MAP) Pulse Ox O2 Delivery O2 Flow Rate FiO2 08/07/25 12:59 97.9 80 18 124/89 (101) 98 97.9 08/07/25 08:00 Nasal Cannula* 3 32 Total Intake and Output 08/06/25 08/06/25 08/07/25 15:00 23:00 07:00 Intake Total 50 ml 50 ml 350 ml Output Total 250 ml 550 ml Balance 50 ml -200 ml -200 ml medications Current Medications Medications Dose Ordered Sig/Rosalind Route Start Time Stop Time Status Last Admin Dose Admin Sodium Chloride 1,000 ml @ 100 mls/hr Q10H IV 08/06/25 03:45 08/06/25 20:42 100 MLS/HR Ondansetron HCl 4 mg Q4HP PRN IV 08/06/25 03:45 Docusate Sodium 100 mg BIDPRN PRN PO 08/06/25 03:45 Acetaminophen 650 mg Q6HP PRN PO 08/06/25 03:45 Morphine Sulfate 2 mg Q4HPRN PRN IV 08/06/25 03:45 08/06/25 15:17 2 MG Enoxaparin Sodium 40 mg DAILY SC 08/06/25 08:00 08/07/25 13:30 40 MG Nitroglycerin 0.4 mg Q5MINP PRN SL 08/06/25 03:45 Albuterol 2.5 mg Q4HPRN PRN NEB 08/06/25 03:45 Tamsulosin HCl 0.4 mg QPM PO 08/06/25 18:00 08/06/25 19:20 0.4 MG Piperacillin Sod/ Tazobactam Sod 100 ml @ 25 mls/hr Q8H IV 08/06/25 22:15 08/07/25 06:43 25 MLS/HR objective Awake alert in no acute distress Pupils equal and react to light, extraocular movements intact , minimal scleral icterus Lungs clear, CVS S1-S2 regular rate rhythm Abdomen is soft nontender nondistended Extremities no clubbing cyanosis or edema Neuro alert oriented x3 with no focal deficit laboratory and microbiology Laboratory Tests 08/07/25 10:27 08/07/25 04:55 Test 08/07/25 04:55 Range/Units Serum Glucose 77 74-106 mg/dL MRCP IMPRESSION: Cholelithiasis with choledocholithiasis. Large right hemidiaphragm hernia contains bowel. Problems(with codes): (1) Cholelithiasis with choledocholithiasis (2) Elevated LFTs (3) UTI (urinary tract infection) (4) Sepsis (5) Hyperbilirubinemia Prognosis Plan Advance diet as tolerated Continue to monitor liver enzymes ; monitor lipase level If the liver enzymes normalize it is likely suggestive of possible spontaneous passage of CBD stone Patient currently has no symptoms and we can continue conservative observation Patient is awaiting possible referral to higher level of care for ERCP if the liver enzymes are persistently elevated Elective laparoscopic cholecystectomy Plan discussed with: Patient PAZ GOFF MD Aug 07, 2025 14:39
[2025-08-07] MEDS: TAMSULOSIN HYDROCHLORIDE 0.4 MG CAP PO SCH (17:58)
[2025-08-08] VITALS (14 sets, daily range): BP systolic 116–150; BP diastolic 53–81; PULSE 75–92; RESP 15–20; TEMP 97.9–99; O2SAT 90–100
[2025-08-08 07:00] LABS: Hematocrit 39.0 % (41.0-53.0); Hemoglobin 13.0 g/dL (13.5-17.5); Mean Corpuscular Hemoglobin 32.4 pg (28.0-32.0); Mean Corpuscular Volume 96.9 fL (80.0-100.0); Nucleated Red Blood Cells % 0.0 %
[2025-08-08 07:17] LABS: Alanine Aminotransferase 41 U/L (7-40); Albumin 3.2 g/dL (3.2-4.8); Alkaline Phosphatase 147 U/L (46-116); Anion Gap 8 (5-15); BUN/Creatinine Ratio 17.5 (10.0-20.0); Blood Urea Nitrogen 14 mg/dL (9-23); Calcium 8.6 mg/dL (8.7-10.4); Carbon Dioxide 32 mmol/L (20-31); Chloride 106 mmol/L (98-107); Glucose 77 mg/dL (74-106); Potassium 3.9 mmol/L (3.5-5.1); Sodium 146 mmol/L (136-145); Total Protein 5.8 g/dL (5.7-8.2)
[2025-08-08 07:19] LABS: Bilirubin, Total 2.2 mg/dL (0.2-1.0)
[2025-08-08] MEDS: SOD CHL 0.45% 1,000 ML IV SCH (08:15)
[2025-08-08] MEDS ORDERED: ALBUTEROL SULF 2.5 MG/0.5ML(0.5%) NEB SOLN ONE (10:56)
[2025-08-08] MEDS: ALBUTEROL SULF 2.5 MG/0.5ML(0.5%) NEB SOLN NEB PRN (10:59)
[2025-08-08] MEDS: MORPHINE SULFATE 4 MG/ML SYR/VIAL IV PRN (22:24)
[2025-08-09] VITALS (11 sets, daily range): BP systolic 114–146; BP diastolic 60–86; PULSE 73–89; RESP 17–22; TEMP 97.2–98.7; O2SAT 90–97
[2025-08-09 05:33] LABS: Hematocrit 40.1 % (41.0-53.0); Hemoglobin 13.4 g/dL (13.5-17.5); Mean Corpuscular Hemoglobin 32.2 pg (28.0-32.0); Mean Corpuscular Volume 96.7 fL (80.0-100.0); Nucleated Red Blood Cells % 0.1 %
[2025-08-09 07:12] LABS: Alanine Aminotransferase 32 U/L (7-40); Albumin 3.2 g/dL (3.2-4.8); Anion Gap 10 (5-15); BUN/Creatinine Ratio 15.2 (10.0-20.0); Blood Urea Nitrogen 10 mg/dL (9-23); Carbon Dioxide 29 mmol/L (20-31); Chloride 105 mmol/L (98-107); Glucose 97 mg/dL (74-106); Potassium 4.0 mmol/L (3.5-5.1); Sodium 144 mmol/L (136-145); Total Protein 6.0 g/dL (5.7-8.2)
[2025-08-09 07:23] LABS: Alkaline Phosphatase 135 U/L (46-116); Bilirubin, Total 1.6 mg/dL (0.2-1.0); Calcium 8.4 mg/dL (8.7-10.4)
[2025-08-10 01:00] VITALS: BP 118/66; PULSE 76; RESP 20; TEMP 98.4; O2SAT 96
== END 2025-08-10 01:46 | disposition short-term general hospital (02) | DRG 444 ==
LOC: EDBD 17:36 → ER 17:36 → OVERFLOW 08-06 03:41 → UNDOADMIN 08-06 03:41 → OVERFLOW 08-06 06:13 → TELE-WESTW 08-06 17:58
PROVIDERS: ADMIT Hospitalist; ATTEND Hospitalist
DX: K80.70 Calculus of gallbladder and bile duct without cholecystitis without obstruction (principal); N17.0 Acute kidney failure with tubular necrosis; R65.11 Systemic inflammatory response syndrome (SIRS) of non-infectious origin with acute organ dysfunction; N39.0 Urinary tract infection, site not specified; I10 Essential (primary) hypertension; E86.0 Dehydration; E80.6 Other disorders of bilirubin metabolism; N28.9 Disorder of kidney and ureter, unspecified; E78.5 Hyperlipidemia, unspecified; R74.01 Elevation of levels of liver transaminase levels; N40.0 Benign prostatic hyperplasia without lower urinary tract symptoms; Z86.73 Personal history of transient ischemic attack (TIA), and cerebral infarction without residual deficits; Z87.891 Personal history of nicotine dependence; Z90.49 Acquired absence of other specified parts of digestive tract; Z79.899 Other long term (current) drug therapy
CPT/HCPCS: 36415; 71045; 71250; 74176; 74181; 76705; 80053; 80074; 81001; 82248; 82728; 83605; 83615; 83690; 83735; 84484; 85025; 85610; 85730; 86038; 87040; 87077; 87086; 87186; 93005; 94640; 99291; G0378; J2543